=== PATIENT | female | born 2005 | race Caucasian/White ===

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

== ENCOUNTER 2024-07-19 08:24 | Outpatient (CLI) | payer OTHER, SELFPAY ==
[2024-07-19] VITALS (15 sets, daily range): BP systolic 126–133; BP diastolic 78–87; PULSE 116–135; RESP 16; TEMP 36.7; O2SAT 98–100; BMI 23.5; BMI 23.3
[2024-07-19] MEDS: Ringers, Lactated 1,000 ML IV.SOLN. 1000 ML IV (10:27)
[2024-07-19 10:38] LABS: Bacteria 0 SEEN /hpf (None Seen); Mucous, Urine 0 SEEN /hpf (<or=2+); Red Blood Cells-Urine 0 SEEN /hpf (0-5); Squamous Epithelial Cells - UA 0 SEEN /hpf (5-10); White Blood Cells 0 SEEN /hpf (0-5)
[2024-07-19 10:44] LABS: Absolute Lymphocyte Count 0.95 X10^3/uL (0.83-4.51); Basophil# 0.05 X10^3/uL; Basophil% 0.3 % (0-1); Eosinophil# 0.05 X10^3/uL; Eosinophils% 0.3 % (0-5); Hematocrit 32.1 % (37-47); Hemoglobin 10.2 g/dL (12.0-15.0); Lymphocyte # 0.95 X10^3/ul (0.83-4.51); Lymphocyte % 5.4 % (19-41); Mean Corp Hgb Conc 31.8 g/dL (32-36); Mean Corpuscular Hgb 26.6 pg (27.0-32.0); Mean Corpuscular Volume 83.8 fL (81-99); Monocyte# 1.29 X10^3/uL; Monocyte% 7.3 % (0-10); NRBC Flagged by Analyzer 0 % (0-5); Neutrophil # 15.04 X10^3/uL (2.7-7.7); Neutrophil % 85.1 % (47-70); Platelet Count 320 K/mm3 (150-450); RBC Distribution Width CV 12.5 % (11.6-14.6); RBC Distribution Width SD 37.6 fl (35.1-43.9); Red Blood Count 3.83 M/mm3 (4.2-5.4); White Blood Count 17.7 K/mm3 (4.4-11.0)
[2024-07-19 10:51] LABS: Glucose, Dipstick Normal (Normal); Ketone-Dipstick 50 mg/dl (Negative); Leukocyte Esterase-Dipstick 100 /ul (Negative); Nitrite-Dipstick Negative (Negative); Occult Blood-Urine 25 /ul (Negative); Protein-Dipstick Negative (Negative); Specific Gravity, Urine 1.005 (1.002-1.030); Urine Bilirubin Dipstick Negative (Negative); Urine Urobilinogen Normal (Normal)
[2024-07-19 11:04] LABS: Color, Urine STRAW (Yellow); Urine Clarity Clear (Clear)
[2024-07-19] MEDS: 0.9% Saline Lock 10 ML Syringe IV (11:29)
[2024-07-19 12:10] LABS: ALB/GLOB Ratio 0.6 RATIO (0.9-2.4); AST(SGOT) 24 U/L (15-37); Alanine Aminotransfer ALT/SGPT 36 U/L (13-56); Albumin, Serum 2.6 g/dL (3.2-5.0); Alkaline Phosphatase 114 U/L (45-117); Anion Gap 9 (5-15); BUN 5 mg/dL (7-18); BUN/Creat Ratio 9.2 RATIO (10-20); Calcium,Total 8.8 mg/dL (8.5-10.1); Chloride 106 mmol/L (98-107); Creatinine, Serum 0.54 mg/dL (0.55-1.02); EST Glomerular Filtration Rate 150 mL/min (>60); Est Glom Filt Rate - Afr Amer 181 mL/min (>60); Estimated Creatinine Clearance 160.26 ml/min; Globulin 4.5 g/dL (2.2-4.2); Glucose 93 mg/dL (74-106); Potassium 3.6 mmol/L (3.5-5.1); Protein, Total 7.1 g/dL (6.4-8.2); Sodium Level 138 mmol/L (136-145)
--- NOTE | 2024-07-19 14:31 | OB.TRI.NOTE ---
HPI - General HPI Narrative ELEANOR BRADEN, is a 19 F who presents at 28weeks with abdominal and back pain. Aches, chills, and URI symptoms. PFSH PFSH Home Medications ?Medication ?Instructions ?Recorded ?Last Taken ?Type aspirin 81 mg tablet,delayed 81 mg PO DAILY 07/19/24 07/12/24 20:00 History release (Ecotrin Low Strength) 81 mg miconazole-skin cleanser #17 2% ea 07/19/24 07/18/24 20:00 History (100 mg)-2 % vaginal kit 1 ea vitamin#30 30 mg iron-10 1 cap PO DAILY 07/19/24 07/18/24 20:00 History mg iron-folic acid 1 mg-omg3 1 cap capsule Allergy/AdvReac Type Severity Reaction Status Date / Time No Known Allergies Allergy Verified 07/19/24 08:45 Social History Smoking Status: Never smoker NST FHR Rate Baby A Baseline: 120 Variability:: Moderate Accelerations:: 15 x 15 Decelerations:: None NST Reactive:: Yes Uterine Activity:: Infrequent Assessment & Plan (1) Back pain: (2) Abdominal pain affecting : (3) Sinus congestion: PLAN: Plan 1) URI, improving 2) Yeast infection, treated in office 3) 1liter LR 4) Urine culture 5) Feeling better, D/C home
== END 2024-07-19 12:20 | disposition home or self-care (01) ==
LOC: WPOUT 08:28 → WP 08:29
PROVIDERS: PCP Pediatrics; Referring Provider Advanced Practice Midwife; Visit Provider Advanced Practice Midwife
DX: O99.891 Other specified diseases and conditions complicating pregnancy (principal); M54.9 Dorsalgia, unspecified; R10.9 Unspecified abdominal pain; O99.513 Diseases of the respiratory system complicating pregnancy, third trimester; J06.9 Acute upper respiratory infection, unspecified; Z3A.28 28 weeks gestation of pregnancy; O98.813 Other maternal infectious and parasitic diseases complicating pregnancy, third trimester; B37.9 Candidiasis, unspecified
CPT/HCPCS: 36415; 59025; 80053; 81001; 85025; 87077; 87086; 87088; 87631; 99221; J7120; A4216; G0378

== ENCOUNTER 2024-09-10 16:30 | Outpatient (CLI) | payer OTHER, SELFPAY ==
[2024-09-10 16:58] VITALS: BMI 25.4
[2024-09-10 17:20] VITALS: BP 132/79; PULSE 90; RESP 16; TEMP 37.1
[2024-09-10 17:35] VITALS: BP 132/83; PULSE 96
[2024-09-10 17:39] LABS: Hematocrit 31.8 % (37-47); Hemoglobin 9.9 g/dL (12.0-15.0); Mean Corp Hgb Conc 31.1 g/dL (32-36); Mean Corpuscular Hgb 24.5 pg (27.0-32.0); Mean Corpuscular Volume 78.7 fL (81-99); Mean Platelet Vol. 9.3 fl (6.2-12.0); Platelet Count 364 K/mm3 (150-450); RBC Distribution Width CV 13.4 % (11.6-14.6); RBC Distribution Width SD 38.6 fl (35.1-43.9); Red Blood Count 4.04 M/mm3 (4.2-5.4); White Blood Count 12.3 K/mm3 (4.4-11.0)
[2024-09-10 17:51] VITALS: BP 130/78; PULSE 100
[2024-09-10 17:51] LABS: Creatinine, Urine (random) < 13.00 mg/dL (NO RANGE EST.); Protein, Urine (Random) < 6.0 mg/dL (<11.9)
[2024-09-10 17:54] LABS: AST(SGOT) 18 U/L (15-37); Alanine Aminotransfer ALT/SGPT 14 U/L (13-56); Creatinine, Serum 0.52 mg/dL (0.55-1.02); EST Glomerular Filtration Rate 156 mL/min (>60); Est Glom Filt Rate - Afr Amer 189 mL/min (>60); Estimated Creatinine Clearance 166.42 ml/min; Uric Acid 3.8 mg/dL (2.6-6.0)
[2024-09-10 18:06] VITALS: BP 144/79; PULSE 98
--- NOTE | 2024-09-10 19:09 | OB.TRI.NOTE ---
HPI - General General Date of Admission: 09/10/24 Date of Service: 09/10/24 Chief Complaint: Elevated BP HPI Narrative ELEANOR BRADEN, is a 19 F who presents from office with elevated BP. No symptoms. BPs on L&D have been low mild to normal. Labs WNL Pr/Cr. Too low to process Maternal Data Information Final SAPNA: 10/06/24 Gestational age: 36+2 PFSH PFSH Home Medications ?Medication ?Instructions ?Recorded ?Last Taken ?Type aspirin 81 mg tablet,delayed 81 mg PO DAILY 07/19/24 09/09/24 21:00 History release (Ecotrin Low Strength) 81 mg vitamin#30 30 mg iron-10 1 cap PO DAILY 07/19/24 09/09/24 21:00 History mg iron-folic acid 1 mg-omg3 1 cap capsule Allergy/AdvReac Type Severity Reaction Status Date / Time No Known Allergies Allergy Verified 09/10/24 16:56 Social History Smoking Status: Never smoker History 1 Elective abortions Hx Para 0 Spontaneous abortions Hx # Term Pregnancies Ectopic pregnancies Hx # Pregnancies Multiple births # of living children NST FHR Rate Baby A Baseline: 140 Variability:: Moderate Accelerations:: 15 x 15 Decelerations:: None NST Reactive:: Yes FHR Category:: Category I Uterine Activity:: irregular Assessment & Plan (1) 36 weeks gestation of : (2) Elevated BP without diagnosis of hypertension: PLAN: Plan PIH precautions. Has appointment on Friday
== END 2024-09-10 18:18 | disposition home or self-care (01) ==
LOC: WPOUT 16:39 → WP 16:39
PROVIDERS: PCP Pediatrics; Referring Provider Obstetrics & Gynecology; Visit Provider Obstetrics & Gynecology
DX: O26.893 Other specified pregnancy related conditions, third trimester (principal); R03.0 Elevated blood-pressure reading, without diagnosis of hypertension; Z3A.36 36 weeks gestation of pregnancy; Z79.82 Long term (current) use of aspirin; Z79.899 Other long term (current) drug therapy
CPT/HCPCS: 36415; 59025; 59050; 82565; 82570; 84156; 84450; 84460; 84550; 85027; 99221; G0378

== ENCOUNTER 2024-09-20 16:49 | Inpatient (IN) | payer OTHER, SELFPAY ==
[2024-09-20] VITALS (7 sets, daily range): BP systolic 130–144; BP diastolic 73–95; PULSE 83–112; RESP 16; TEMP 36.8; BMI 26.4
[2024-09-20] MEDS: Lactated Ringers 1,000 ML 50 ML IV (17:25)
[2024-09-20 17:43] LABS: Absolute Lymphocyte Count 1.35 X10^3/uL (0.83-4.51); Absolute Neutrophil Count 9.7 X10^3/uL (2.0-7.7); Basophil# 0.02 X10^3/uL; Basophil% 0.2 % (0-1); Eosinophil# 0.22 X10^3/uL; Eosinophils% 1.8 % (0-5); Hematocrit 30.6 % (37-47); Hemoglobin 9.5 g/dL (12.0-15.0); Lymphocyte # 1.35 X10^3/ul (0.83-4.51); Mean Corpuscular Hgb 24.1 pg (27.0-32.0); Mean Corpuscular Volume 77.7 fL (81-99); Mean Platelet Vol. 9.3 fl (6.2-12.0); Monocyte# 0.81 X10^3/uL; Monocyte% 6.6 % (0-10); NRBC Flagged by Analyzer 0 % (0-5); Neutrophil # 9.73 X10^3/uL (2.7-7.7); Neutrophil % 79.7 % (47-70); Platelet Count 398 K/mm3 (150-450); RBC Distribution Width CV 14.1 % (11.6-14.6); RBC Distribution Width SD 39.1 fl (35.1-43.9); Red Blood Count 3.94 M/mm3 (4.2-5.4); White Blood Count 12.2 K/mm3 (4.4-11.0)
[2024-09-20 18:01] LABS: AST(SGOT) 21 U/L (15-37); Alanine Aminotransfer ALT/SGPT 16 U/L (13-56); Creatinine, Serum 0.51 mg/dL (0.55-1.02); EST Glomerular Filtration Rate 161 mL/min (>60); Est Glom Filt Rate - Afr Amer 195 mL/min (>60); Estimated Creatinine Clearance 185.99 ml/min; Uric Acid 4.2 mg/dL (2.6-6.0)
[2024-09-20 18:19] LABS: Syphilis Antibodies Non-reactive
[2024-09-20 18:22] LABS: Protein, Urine (Random) 12.1 mg/dL (<11.9); Protein:Creat Ratio 823 mg/g CRE (0-200)
[2024-09-20] MEDS: miSOPROStol 25 MCG TABLET PO ×2 (18:23→22:55)
[2024-09-21] VITALS (54 sets, daily range): BP systolic 119–150; BP diastolic 58–100; PULSE 83–121; RESP 16–17; TEMP 36.7–37.6; O2SAT 97–100
[2024-09-21] MEDS: miSOPROStol 25 MCG TABLET PO ×2 (03:22→08:23)
--- NOTE | 2024-09-21 08:30 | PCM.HP.OB ---
HPI - General General Date of Admission: 09/20/24 HPI Narrative ELEANOR BRADEN, is a 19 F who presents for induction. Maternal Data Information SAPNA Calculator Estimated Delivery Date Method Current WG Current Estimate 10/06/24 Manual 37w 6d Final SAPNA: [facility]06[facility] Medical History Gestational HTN Home Medications ?Medication ?Instructions ?Recorded ?Last Taken ?Type aspirin 81 mg tablet,delayed 81 mg PO DAILY 07/19/24 09/17/24 History release (Ecotrin Low Strength) vitamin#30 30 mg iron-10 1 cap PO DAILY 07/19/24 09/19/24 History mg iron-folic acid 1 mg-omg3 capsule Allergy/AdvReac Type Severity Reaction Status Date / Time No Known Allergies Allergy Verified 09/20/24 18:13 Social History Smoking Status: Never smoker History 1 Elective abortions Hx Para 0 Spontaneous abortions Hx # Term Pregnancies Ectopic pregnancies Hx # Pregnancies Multiple births # of living children NST FHR Rate Baby A Baseline: 145 Variability:: Moderate Accelerations:: 15 x 15 Decelerations:: Variable Uterine Activity:: Irregular Vital Signs Vital Signs Vital Signs: 09/20/24 16:32 09/20/24 16:32 09/20/24 16:47 Temperature Temperature Source Pulse Rate 93 Respiratory Rate Blood Pressure 141/95 H 140/86 H BP Systolic 141 140 BP Diastolic 95 86 09/20/24 16:47 09/20/24 17:02 09/20/24 17:02 Temperature Temperature Source Pulse Rate 93 95 Respiratory Rate Blood Pressure 136/76 H BP Systolic 136 BP Diastolic 76 09/20/24 17:17 09/20/24 17:17 09/20/24 17:32 Temperature Temperature Source Pulse Rate 112 H Respiratory Rate Blood Pressure 144/80 H 138/77 H BP Systolic 144 138 BP Diastolic 80 77 09/20/24 17:32 09/20/24 17:47 09/20/24 17:47 Temperature Temperature Source Pulse Rate 88 90 Respiratory Rate Blood Pressure 139/73 H BP Systolic 139 BP Diastolic 73 09/20/24 22:16 09/20/24 22:16 09/20/24 22:16 Temperature Temperature Source Temporal Pulse Rate 83 Respiratory Rate Blood Pressure 130/75 H BP Systolic 130 BP Diastolic 75 09/20/24 22:16 09/20/24 22:16 09/21/24 02:54 Temperature 98.2 F Temperature Source Pulse Rate Respiratory Rate 16 Blood Pressure 141/87 H BP Systolic 141 BP Diastolic 87 09/21/24 02:54 09/21/24 02:54 09/21/24 02:54 Temperature Temperature Source Temporal Pulse Rate 83 Respiratory Rate 16 Blood Pressure BP Systolic BP Diastolic 09/21/24 02:54 09/21/24 07:47 09/21/24 07:47 Temperature 98.0 F Temperature Source Pulse Rate 100 Respiratory Rate Blood Pressure 143/82 H BP Systolic 143 BP Diastolic 82 09/21/24 07:47 09/21/24 07:47 09/21/24 07:47 Temperature 98.4 F Temperature Source Temporal Pulse Rate Respiratory Rate 16 Blood Pressure BP Systolic BP Diastolic Weight Weight: 168 lb 6.931 oz Body Mass Index (BMI) 26.4 Physical Exam Const alert, oriented x3 and no apparent distress Chest inspection of chest normal GI soft to palpation, non-tender and non-distended Inspection: gravid external exam normal Narrative: cvx - 1.5/80/-2 Labs Labs Labs: Blood Type A POSITIVE Antibody Screen NEGATIVE Hct 30.6 % (37-47) L Hgb 9.5 g/dL (12.0-15.0) L Syphilis Total Ab Non-reactive Assessment & Plan (1) Preeclampsia: QUALIFIERS: Trimester: third trimester Qualified Code(s): O14.93 - Unspecified pre-eclampsia, third trimester COMMENT: @ 37&6 PLAN: Plan Admit to L&D. Preeclampsia - proceed with induction as diagnosed in office yesterday. No severe features at this time. Induction - patient received cytotec overnight per prior call provider. Intracervical norris placed and will start pitocin when able. GBS bacteruria - pcn per protocol EFW - less than 4500g and patient with adequate pelvis.
[2024-09-21] MEDS: 0.9% Normal Saline Single 100 ML IV.SOLN. INTRA-UTER (08:42)
[2024-09-21] MEDS: Oxytocin 15 Units/NS 250ml 15 UNITS/250 ML IV.SOLN 2 UNITS IV (12:20)
--- NOTE | 2024-09-21 12:21 | PN.OBGYN_ITS ---
Subjective Subjective Denies complaints. Objective Data Objective Data Vital Signs: Vital Signs Temp Pulse Resp BP Pulse Ox 98.3 F 90 16 140/82 H 99 09/21/24 11:07 09/21/24 11:07 09/21/24 11:07 09/21/24 11:07 09/21/24 11:07 Weight: 168 lb 6.931 oz Body Mass Index (BMI) 26.4 Intake & Output: Intake and Output for Last 24 Hours 09/19/24 09/20/24 09/21/24 23:59 23:59 23:59 Intake Total 154.17 / 154.17 Balance 154.17 / 154.17 Lab / Micro Data 09/20/24 17:25 09/20/24 17:25 Labs: Laboratory Results - last 24 hr 09/20/24 17:00: U Random Total Protein 12.1 H, Urine Creatinine 14.70, P rotein/Creatinin Ratio 823 H 09/20/24 17:25: WBC 12.2 H, RBC 3.94 L, Hgb 9.5 L, Hct 30.6 L, MCV 77.7 L, MCH 24.1 L, MCHC 31.0 L, RDW Std Deviation 39.1, RDW Coeff of Barry 14.1, Plt Count 398, MPV 9.3, Immature Gran % (Auto) 0.700, Neut % (Auto) 79.7 H, Lymph % (Auto) 11.0 L, Mcdonough % (Auto) 6.6, Eos % (Auto) 1.8, Baso % (Auto) 0.2, Absolute Neuts (auto) 9.7 H, Absolute Lymphs (auto) 1.35, Nucleated RBC % 0, Creatinine 0.51 L, Estim Creat Clear Calc 185.99, Est GFR (MDRD) Af Amer 195, Est GFR (MDRD) Non-Af 161, Uric Acid 4.2, AST 21, ALT 16, Syphilis Total Ab Non-reactive, Blood Type A POSITIVE, Antibody Screen NEGATIVE NST FHR Rate Baby A Baseline: 145 Variability:: Moderate Accelerations:: 15 x 15 Decelerations:: Variable Uterine Activity:: Irregular Assessment & Plan (1) Preeclampsia: QUALIFIERS: Trimester: third trimester Qualified Code(s): O14.93 - Unspecified pre-eclampsia, third trimester COMMENT: @ 37&6 PLAN: AROM clear fluid Start pitocin
[2024-09-21] MEDS: Penicillin G Pot 5,000,000 UNITS in 0.9% Normal Saline (100mL MB+) 100 ML 150 UNITS IV (12:24)
[2024-09-21] MEDS: 0.9% Saline Lock 10 ML Syringe IV (12:27)
[2024-09-21] MEDS: fentaNYL-bupivacaine (epidural) 100 ML BAG EPIDURAL ×2 (15:05→19:34)
[2024-09-21] MEDS: Lactated Ringers 1,000 ML 50 ML IV (15:59)
[2024-09-21] MEDS: Acetaminophen 500 MG Tablet PO (17:06)
[2024-09-21] MEDS: Penicillin G 3,000,000 Units 50 ML 100 UNITS IV (17:07)
[2024-09-21] MEDS: Ondansetron 4 MG/2 ML Vial IV (17:40)
--- NOTE | 2024-09-21 22:06 | EX.PCM.OBVAG ---
Maternal Data Information SAPNA Calculator Estimated Delivery Date Method Current WG Current Estimate 10/06/24 Manual 37w 6d Vaginal Delivery Maternal Presentation Maternal Presentation: Medically Indicated Induction Type of Induction: Pitocin, Dietrich Bulb, Amniotomy and Cytotec Medical Reason for Induction: Preeclampsia, eclampsia Vaginal Delivery Information Procedure Performed: Spontaneous Vaginal Delivery Surgeon/Practitioner: Lori Padilla Date of Procedure: 09/21/24 Pre-Procedure Diagnosis: Preeclampsia Post-Procedure Diagnosis: Same Type of anesthesia: Epidural Estimated Blood Loss: 250ml Findings Description of procedure: Called to room when patient C/C/+2. She was prepped & draped. Patient pushed well to deliver the head. head was gently guided to allow delivery of anterior and posterior shoulders. No excess traction placed on the head. The body delivered. 3VC clamped and cut in delayed fashion. Placenta delivered with gentle traction and good uterine tone obtained. Presentation: RUPERTO Amniotic Membrane Rupture Type: Artificial Amniotic Fluid Description: Clear Placental Delivery Description: Expressed Placenta Disposition: [facility] Specimen collected: No Cord Vessel Description: 3 Vessels Cord Entanglement: None Infant A Gender: Female (1 minute): 8 (5 minute): 9 Delayed Cord Clamping: Yes Director Corporate city magistrate: No Post Vaginal Deli Medications given after delivery: IV Pitocin Episiotomy Description: None Laceration: 1st degree (vaginal - repaired with 3-0 vicryl) Complication Complications: No
[2024-09-21] MEDS: Oxytocin 15 Units/NS 250ml 15 UNITS/250 ML IV.SOLN 83 UNITS IV (23:11)
[2024-09-22] VITALS (21 sets, daily range): BP systolic 124–147; BP diastolic 60–103; PULSE 99–113; RESP 15–17; TEMP 36.6–37; O2SAT 89–100
[2024-09-22] MEDS: Acetaminophen 500 MG Tablet 1000 MG PO ×2 (07:39→17:02)
--- NOTE | 2024-09-22 08:06 | PCM.PN.OB ---
Subjective Subjective Doing well. Ambulating and voiding without difficulty. Mild lochia. Breast feeding. No PENALOZA. No vision changes Objective Data Objective Data Vital Signs: Vital Signs Temp Pulse Resp BP Pulse Ox O2 Del Method 98.6 F 105 H 15 140/103 H 97 Room Air 09/22/24 07:26 09/22/24 07:26 09/22/24 07:26 09/22/24 07:26 09/22/24 07:26 09/22/24 07:26 Oxygen Delivery Method Room Air Weight: 76.4 kg Body Mass Index (BMI) 26.4 Intake & Output: Intake and Output for Last 24 Hours 09/20/24 09/21/24 09/22/24 23:59 23:59 23:59 Intake Total 154.17 / 154.17 1559.50 / 1559.50 250 / 250 Output Total 850 / 850 1300 / 1300 Balance 154.17 / 154.17 709.50 / 709.50 -1050 / -1050 Lab / Micro Data 09/20/24 17:25 09/20/24 17:25 ROS Constitutional Constitutional: Denies fatigue, fever(s) or malaise Eyes Eyes: Denies change in vision ENT HEENT: Denies dizziness or headache(s) Cardiovascular Cardiovascular: Denies chest pain, dyspnea or lightheadedness Respiratory/Chest Respiratory/Chest: Denies cough or dyspnea Gastrointestinal Gastrointestinal: Denies change in bowel habits Genitourinary Genitourinary: Denies burning urination or genital lesions Integumentary Integumentary: Denies rash Neurologic Neurologic: Denies confusion, dizziness, headache(s), numbness or weakness Physical Exam Const alert and no apparent distress Resp normal respiratory effort Narrative: Fundus firm, below umbilicus. Extremity General Extremity: edema bilateral Neuro oriented x3 Assessment & Plan (1) Preeclampsia: QUALIFIERS: Trimester: third trimester Qualified Code(s): O14.93 - Unspecified pre-eclampsia, third trimester PLAN: BP stable (2) (spontaneous vaginal delivery):
[2024-09-22] MEDS: 0.9% Saline Lock 10 ML Syringe IV (09:27)
--- NOTE | 2024-09-22 09:40 | NURSING ---
0805 dr rothman made aware of elevated bp, clonus on the rt, and brisk reflexes.
[2024-09-22] MEDS: Ibuprofen 600 MG Tablet PO (13:15)
[2024-09-22] MEDS: NIFEdipine 30 MG Tablet PO (22:09)
[2024-09-23] VITALS (9 sets, daily range): BP systolic 128–152; BP diastolic 77–105; PULSE 92–135; RESP 16–125; TEMP 36.6–36.8; O2SAT 98–100
--- NOTE | 2024-09-23 08:25 | PCM.PN.OB ---
Subjective Subjective Pt doing well. Off and on mild headaches that resolve after sleeping. No headache currently. No vision changes, epigastric pain, RUQ pain, N/V. Denies CP, SOB, leg pain, lightheadedness, dizziness. Lochia normal. She offers no complaints. Objective Data Objective Data Vital Signs: Vital Signs Temp Pulse Resp BP Pulse Ox O2 Del Method 97.9 F 116 H 16 140/89 H 98 Room Air 09/23/24 03:15 09/23/24 03:15 09/23/24 03:15 09/23/24 03:15 09/23/24 03:15 09/23/24 03:15 Oxygen Delivery Method Room Air Weight: 168 lb 6.931 oz Body Mass Index (BMI) 26.4 Intake & Output: Intake and Output for Last 24 Hours 09/21/24 09/22/24 09/23/24 23:59 23:59 23:59 Intake Total 1559.50 / 1559.50 250 / 250 Output Total 850 / 850 1300 / 1300 Balance 709.50 / 709.50 -1050 / -1050 Lab / Micro Data 09/20/24 17:25 09/20/24 17:25 Physical Exam Const alert and no apparent distress General Appearance: comfortable HEENT normocephalic Resp normal respiratory effort GI soft to palpation, non-tender and non-distended GI Narrative: FF@U-2 Extremity no calf tenderness Extremity Narrative: 1+ edema bilaterally Assessment & Plan (1) (spontaneous vaginal delivery): PLAN: PPD#1 s/p . Doing well. Routine care. Possible discharge tonight and d/c instructions reviewed. (2) Preeclampsia: QUALIFIERS: Trimester: third trimester Qualified Code(s): O14.93 - Unspecified pre-eclampsia, third trimester PLAN: BP's mild range and started on Procardia last night. No symptoms of pre e. Discussed monitoring blood pressures throughout the day today, and possible discharge late tonight. Reviewed checking blood pressures at home and follow up in office for BP check.
[2024-09-23] MEDS: Acetaminophen 500 MG Tablet 1000 MG PO (08:38)
--- NOTE | 2024-09-23 09:55 | NURSING ---
IN ROOM ROUNDING IN PATIENT. . PATIENT COMPLAINS OF FEELING HEART RACING. PULSE OXIMETER PLACED ON FINGER. HR 120-130, SpO2 100%. PT DENIES FEELING DIZZY, SOB.
[2024-09-23] MEDS: NIFEdipine 30 MG Tablet PO (22:33)
[2024-09-23] MEDS: Senna/Docusate Sodium 1 Tablet PO (22:41)
[2024-09-24 01:54] VITALS: BP 149/82; PULSE 83; RESP 16; TEMP 36.6; O2SAT 99
[2024-09-24 02:14] VITALS: BP 141/94
--- NOTE | 2024-09-24 06:29 | PCM.DC.SUM ---
Providers Date of Admission: 09/20/24 Primary Care Physician: Dr. Yoli Ha MD Reason For Visit: VAGINAL DELIVERY Diagnosis Discharge Diagnosis (1) (spontaneous vaginal delivery): Status: Acute Code(s): O80 - Encounter for full-term uncomplicated delivery (2) Preeclampsia: Status: Acute Code(s): O14.90 - Unspecified pre-eclampsia, unspecified trimester Qualifiers: Trimester: third trimester Qualified Code(s): O14.93 - Unspecified pre-eclampsia, third trimester Plan PPD 2 Procardia 30 mg XL daily- RX sent BP checks at home with parameters Follow up Friday in office Medications at Discharge Home Medications vitamin#30 30 mg iron-10 mg iron-folic acid 1 mg-omg3 capsule 1 cap PO DAILY 07/19/24 acetaminophen 500 mg tablet 1,000 mg (2 x 500 mg) PO Q6H PRN PRN Pain 1-10 Or Fever #0 tabs 09/24/24 ibuprofen 600 mg tablet 600 mg PO Q6H PRN PRN Pain Score 1-10 #0 tabs 09/24/24 nifedipine 30 mg tablet,extended release 24 hr 30 mg PO QHS #30 tabs 09/24/24 Hospital Course Operations None Procedures None Summary of Care Provided Minutes Spent on Discharge: 15 Hospital Course: Patient had vaginal delivery. Hospital course was uneventful. Physical Exam Narrative Patient seen at bedside. Denies pain. Ambulating and voiding without difficulty. Lochia decreased. Desires discharge home today. Denies any headache, vision changes, SOB, CP. Const alert and oriented x3 General Appearance: Negative for in distress HEENT normocephalic Eyes General Eye: normal appearance of both eyes Neck General: normal visual inspection Chest Chest: symmetrical chest wall rise Resp normal respiratory effort and normal air movement Effort and Inspection: symmetric chest movement; Negative for tachypneic Auscultation: clear to auscultation bilaterally Cardio regular rate and regular rhythm Peripheral Pulses: pulses 2+ throughout GI normal to inspection, nondistended, normoactive bowel sounds Narrative: Ice to perineum OB / External & Speculum: vaginal bleeding and other Lochia decreasing Uterus Palpation: uterus fundus firm (Below U) Extremity normal to inspection, full ROM and normal capillary refill Skin no rashes or lesions noted Neuro oriented x3, CN's II-XII intact bilaterally and gait normal Psych mental status grossly normal, thought process normal and activity/motor behavior normal Weight / BMI Weight Weight: 168 lb 6.931 oz Body Mass Index (BMI) 26.4 ABG / Lab / Microbiology Data 09/20/24 17:25 09/20/24 17:25 D/C Instructions Discharge Diet: No restrictions Discharge Activity: Return to Normal Activity, No Restrictions, May Drive, May Shower and May Take a Tub Bath (Warm water only. No bath salts, soaps, bubbles) May resume sexual activity in: 6-8 weeks Weight Bearing Status: Weight bearing as tolerated Call your doctor if you observe: Fever of 101 or Higher, Inability to urinate, Using more than 1 pad per hour, Shortness of breath, Dizziness, Chest pain, Calf discomfort and Uncontrolled pain Additional Instructions: Call if BP >160/110 or symptomatic Please Follow Up With: [facility] Hugo SORIANO When: Friday for BP check Meaningful Use Info Meaningful Use Meaningful Use Diagnoses (Choose all that apply): None applicable Ischemic Stroke Statin Dosing Therapy Reference: STATIN DOSE THERAPY REFERENCE: * Patients > 75 years receive moderate or high dose statin therapy. * Patients 75 years or YOUNGER should receive HIGH intensity statin dose unless contraindicated. You will be required to document reason for non-treatment if statin daily dose does not meet guidelines. HIGH DOSE STATIN THERAPY DAILY Atorvastatin > than or = to 40 mg Rosuvastatin > than or = to 20 mg Amlodipine + Atorvastatin > than or = to 2.5/40 mg Ezetimibe + Simvastatin 10/80 mg Simvastatin 80mg Discharge Plan Admission Admit Date/Time: 09/20/24 16:49 Primary Reason for Your Visit: delivery Attending Provider: Lori Padilla Primary Care Provider: Yoli Ha Discharge Orders/Prescriptions Prescriptions: New nifedipine 30 mg Tablet Extended Release 24hr 30 mg PO QHS Qty: 30 0RF acetaminophen 500 mg Tablet 1,000 mg PO Q6H PRN PRN (Reason: Pain 1-10 Or Fever) Qty: 0 0RF ibuprofen 600 mg Tablet 600 mg PO Q6H PRN PRN (Reason: Pain Score 1-10) Qty: 0 0RF Continued PNV #[id number] 30 mg iron-10 mg iron-1 mg capsule 1 cap PO DAILY Discontinued aspirin [Ecotrin Low Strength] 81 mg tablet,delayed release (DR/EC) 81 mg PO DAILY Referrals / Follow Up: Yoli Ha MD [Primary Care Provider] - Disposition Disposition (needs filled in before D/C Order can be placed): Home, Self Care
[2024-09-24 08:55] VITALS: BP 132/79; PULSE 98; RESP 16; TEMP 37; O2SAT 100
[2024-09-24 16:00] VITALS: BP 132/95; PULSE 99; RESP 16; TEMP 36.9; O2SAT 100
== END 2024-09-24 16:50 | disposition home or self-care (01) | DRG 807 ==
PROVIDERS: Admitting Provider Advanced Practice Midwife; PCP Pediatrics; Referring Provider Advanced Practice Midwife; Visit Provider Obstetrics & Gynecology
DX: O14.94 Unspecified pre-eclampsia, complicating childbirth (principal); Z37.0 Single live birth; O70.0 First degree perineal laceration during delivery; Z79.82 Long term (current) use of aspirin; Z3A.37 37 weeks gestation of pregnancy
CPT/HCPCS: 59025; 59050; 82565; 82570; 84156; 84450; 84460; 84550; 85025; 86780; 86850; 86900; 86901; 99221; J7120; A4216; G0378; J2405